=== PATIENT | female | born 1965 | race Caucasian/White ===

== ENCOUNTER 2021-02-25 16:31 | Outpatient (CLI) | payer BC ==
--- NOTE | 2021-02-25 16:54 | XRAY Report ---
PROCEDURE: Chest 2 View X-Ray INDICATIONS: PRODUCTIVE AND PAINFUL COUGH TECHNIQUE: 2 view(s) of the chest. COMPARISON: None. FINDINGS: Surgical changes and devices: None. Lungs and pleura: No pleural effusions or pneumothorax. Lungs are clear. Mediastinum: Mediastinal contours are normal. Heart size is normal. Bones and chest wall: No suspicious bony abnormalities. Soft tissues appear unremarkable. IMPRESSION: No acute pulmonary process. Reviewed by: Minerva Padilla MD on 02/25/2021 4:53 PM [facility] Approved by: Minerva Padilla MD on 02/25/2021 4:53 PM [facility] Station ID: [id number]
== END 2021-02-25 16:32 | disposition home or self-care (01) ==
LOC: DI 16:31
PROVIDERS: ATTEND Family Medicine
DX: R05.9 Cough, unspecified (principal)